=== PATIENT | female | born 1975 | race Two or more races ===

== ENCOUNTER 2019-04-03 10:57 | Outpatient (CLI) | payer OTHER | END 2019-04-03 11:06 | disposition home or self-care (01) | LOC: LAB 10:57 | DX: C50.412 Malignant neoplasm of upper-outer quadrant of left female breast (principal); Z17.0 Estrogen receptor positive status [ER+] ==

== ENCOUNTER 2019-09-17 07:24 | Inpatient (IN) | payer OTHER | END 2019-09-18 01:30 | disposition home or self-care (01) | DRG 581 | LOC: CIR.AMB 07:24 → O/R 19:32 → CIR.AMB 09-18 01:30 → O/R 09-18 01:30 | PROVIDERS: Surgery; ADMIT Plastic Surgery; ATTEND Plastic Surgery | PROC: 0HBV0ZZ Excision of Bilateral Breast, Open Approach (ICD-10-PCS; 2019-09-17) | PROC: 07B60ZZ Excision of Left Axillary Lymphatic, Open Approach (ICD-10-PCS; principal; 2019-09-17 16:15) | PROC: 0HBU0ZZ Excision of Left Breast, Open Approach (ICD-10-PCS; 2019-09-17 16:15) | DX: C50.412 Malignant neoplasm of upper-outer quadrant of left female breast (principal); N62 Hypertrophy of breast; Z20.828 Contact with and (suspected) exposure to other viral communicable diseases ==

== ENCOUNTER → 2019-10-01 | Outpatient (CLI) | payer OTHER | END | disposition home or self-care (01) | LOC: MAMO-SONO 10:45 → SONOGRAMA 11:28 | PROVIDERS: ATTEND Surgery | DX: R22.31 Localized swelling, mass and lump, right upper limb (principal) ==

== ENCOUNTER 2019-10-22 09:24 | Outpatient (CLI) | payer OTHER | END 2019-10-22 09:30 | disposition home or self-care (01) | LOC: LAB 09:24 | DX: C50.412 Malignant neoplasm of upper-outer quadrant of left female breast (principal); E03.8 Other specified hypothyroidism ==

== ENCOUNTER 2020-09-18 10:01 | Outpatient (CLI) | payer OTHER | END 2020-09-18 10:21 | disposition home or self-care (01) | LOC: MAMO-SONO 10:01 | DX: C50.412 Malignant neoplasm of upper-outer quadrant of left female breast (principal) ==

== ENCOUNTER 2021-07-01 16:07 | Inpatient (IN) | payer OTHER ==
[~2021-07-01] VITALS: Ht 167.6 cm; Wt 61.7 kg
[2021-07-03] MEDS ORDERED: OXYC1TAB9 PO (07:31)
== END 2021-07-03 08:14 | disposition home or self-care (01) | DRG 761 ==
LOC: ER 16:07 → OB/GYN 07-02 12:49 → SEC-K 07-02 12:49 → OB/GYN 07-02 13:36
PROVIDERS: ADMIT Obstetrics & Gynecology Gynecology; ATTEND Obstetrics & Gynecology Gynecology
PROC: BW4GZZZ Ultrasonography of Pelvic Region (ICD-10-PCS; principal; 2021-07-02)
DX: N83.291 Other ovarian cyst, right side (principal); Z20.822 Contact with and (suspected) exposure to COVID-19

== ENCOUNTER 2021-08-03 09:43 | Outpatient (CLI) | payer OTHER ==
[~2021-08-03 09:43] MED LIST: OXYC1TAB9 PO
== END 2021-08-03 09:45 | disposition home or self-care (01) ==
LOC: SONOGRAMA 09:43
PROVIDERS: ATTEND Obstetrics & Gynecology Gynecology
DX: D27.0 Benign neoplasm of right ovary (principal)

== ENCOUNTER 2021-08-08 08:20 | Outpatient (CLI) | payer OTHER | END 2021-08-08 11:59 | disposition home or self-care (01) | LOC: NUCLEAR 08:20 | PROVIDERS: ATTEND Internal Medicine | DX: C50.412 Malignant neoplasm of upper-outer quadrant of left female breast (principal); C79.61 Secondary malignant neoplasm of right ovary; Z88.0 Allergy status to penicillin; Z88.8 Allergy status to other drugs, medicaments and biological substances | CPT/HCPCS: 78812; A9552 ==

== ENCOUNTER 2021-08-16 12:32 | Inpatient (IN) | payer OTHER ==
[~2021-08-16] VITALS: Ht 167.6 cm; Wt 60.3 kg
[2021-08-30] MEDS ORDERED: SIMETHICONE125 M1 PO (18:33)
[2021-08-30] MEDS ORDERED: HYOSCYAMINE0.125 M1 SL (18:33)
[2021-08-30] MEDS ORDERED: Ferro-Plex CAPLET PO (18:33)
[2021-08-30] MEDS ORDERED: GABAPENTIN100 MG PO (18:33)
== END 2021-08-30 19:14 | disposition home or self-care (01) | DRG 737 ==
LOC: ER 12:32 → SURH 22:39 → MEDI 22:39 → SURH 08-18 21:35
PROVIDERS: Obstetrics & Gynecology Gynecologic Oncology; Surgery; ADMIT Internal Medicine Hematology & Oncology; ATTEND Internal Medicine Hematology & Oncology
PROC: 07BC0ZZ Excision of Pelvis Lymphatic, Open Approach (ICD-10-PCS; 2021-08-23)
PROC: 0DBU0ZZ Excision of Omentum, Open Approach (ICD-10-PCS; 2021-08-23)
PROC: 0DNN0ZZ Release Sigmoid Colon, Open Approach (ICD-10-PCS; 2021-08-23)
PROC: 0DN80ZZ Release Small Intestine, Open Approach (ICD-10-PCS; 2021-08-23)
PROC: 0WQF0ZZ Repair Abdominal Wall, Open Approach (ICD-10-PCS; 2021-08-23)
PROC: 0DTJ0ZZ Resection of Appendix, Open Approach (ICD-10-PCS; 2021-08-23)
PROC: 0UT20ZZ Resection of Bilateral Ovaries, Open Approach (ICD-10-PCS; principal; 2021-08-23 07:00)
PROC: 0UT70ZZ Resection of Bilateral Fallopian Tubes, Open Approach (ICD-10-PCS; 2021-08-23 07:00)
PROC: 0D9670Z Drainage of Stomach with Drainage Device, Via Natural or Artificial Opening (ICD-10-PCS; 2021-08-26)
DX: C56.1 Malignant neoplasm of right ovary (principal); N39.0 Urinary tract infection, site not specified; R18.0 Malignant ascites; K91.89 Other postprocedural complications and disorders of digestive system; K56.7 Ileus, unspecified; T80.1XXA Vascular complications following infusion, transfusion and therapeutic injection, initial encounter; I80.8 Phlebitis and thrombophlebitis of other sites; I87.2 Venous insufficiency (chronic) (peripheral); N99.4 Postprocedural pelvic peritoneal adhesions; N73.6 Female pelvic peritoneal adhesions (postinfective); K38.8 Other specified diseases of appendix; K43.9 Ventral hernia without obstruction or gangrene; D50.0 Iron deficiency anemia secondary to blood loss (chronic); E86.0 Dehydration; E87.6 Hypokalemia; F43.22 Adjustment disorder with anxiety

== ENCOUNTER 2021-09-20 07:35 | Outpatient (CLI) | payer OTHER ==
[~2021-09-20 07:35] MED LIST changes: +Ferro-Plex CAPLET PO; +GABAPENTIN100 MG PO; +HYOSCYAMINE0.125 M1 SL; +SIMETHICONE125 M1 PO
== END 2021-09-20 07:51 | disposition home or self-care (01) ==
LOC: MAMO-SONO 07:35
PROVIDERS: ATTEND Surgery
DX: N60.11 Diffuse cystic mastopathy of right breast (principal); N60.12 Diffuse cystic mastopathy of left breast

== ENCOUNTER 2021-10-05 11:28 | Outpatient (CLI) | payer OTHER | END 2021-10-05 11:43 | disposition home or self-care (01) | LOC: PPH VACUNA 11:28 | PROVIDERS: ATTEND Emergency Medicine Pediatric Emergency Medicine | DX: Z23 Encounter for immunization (principal) ==

== ENCOUNTER 2022-02-23 20:44 | Inpatient (IN) | payer OTHER ==
[~2022-02-23] VITALS: Ht 167.6 cm; Wt 47.6 kg
== END 2022-03-05 21:22 | disposition home or self-care (01) | DRG 812 ==
LOC: ER 20:44 → MEDI 23:02
PROVIDERS: ADMIT Internal Medicine; ATTEND Internal Medicine
PROC: 30233N1 Transfusion of Nonautologous Red Blood Cells into Peripheral Vein, Percutaneous Approach (ICD-10-PCS; principal; 2022-02-24)
PROC: 4A12X4Z Monitoring of Cardiac Electrical Activity, External Approach (ICD-10-PCS; 2022-02-24)
PROC: BW21YZZ Computerized Tomography (CT Scan) of Abdomen and Pelvis using Other Contrast (ICD-10-PCS; 2022-03-01)
DX: D64.9 Anemia, unspecified (principal); N39.0 Urinary tract infection, site not specified; N13.39 Other hydronephrosis; C56.1 Malignant neoplasm of right ovary; C78.7 Secondary malignant neoplasm of liver and intrahepatic bile duct; C78.6 Secondary malignant neoplasm of retroperitoneum and peritoneum; E86.0 Dehydration; K29.00 Acute gastritis without bleeding; D63.0 Anemia in neoplastic disease; Z85.3 Personal history of malignant neoplasm of breast

== ENCOUNTER 2022-03-12 16:12 | Inpatient (IN) | payer OTHER ==
[~2022-03-12] VITALS: Ht 175.3 cm; Wt 52.6 kg
== END 2022-04-05 17:33 | disposition expired | DRG 872 ==
LOC: MEDJ 16:12
PROVIDERS: ADMIT Internal Medicine Hematology & Oncology; ATTEND Internal Medicine Hematology & Oncology
PROC: 30233N1 Transfusion of Nonautologous Red Blood Cells into Peripheral Vein, Percutaneous Approach (ICD-10-PCS; 2022-03-13)
PROC: CW1N1ZZ Planar Nuclear Medicine Imaging of Whole Body using Technetium 99m (Tc-99m) (ICD-10-PCS; 2022-03-15)
PROC: BW24YZZ Computerized Tomography (CT Scan) of Chest and Abdomen using Other Contrast (ICD-10-PCS; 2022-03-18)
PROC: BR27YZZ Computerized Tomography (CT Scan) of Thoracic Spine using Other Contrast (ICD-10-PCS; 2022-03-18)
PROC: 4A12X4Z Monitoring of Cardiac Electrical Activity, External Approach (ICD-10-PCS; principal; 2022-03-31)
DX: A41.9 Sepsis, unspecified organism (principal); C56.1 Malignant neoplasm of right ovary; C78.6 Secondary malignant neoplasm of retroperitoneum and peritoneum; C78.7 Secondary malignant neoplasm of liver and intrahepatic bile duct; N13.39 Other hydronephrosis; E44.1 Mild protein-calorie malnutrition; C78.00 Secondary malignant neoplasm of unspecified lung; G89.3 Neoplasm related pain (acute) (chronic); D63.0 Anemia in neoplastic disease; E86.0 Dehydration; E87.6 Hypokalemia; G63 Polyneuropathy in diseases classified elsewhere; E83.52 Hypercalcemia; F45.8 Other somatoform disorders
CPT/HCPCS: 240